=== PATIENT | female | born 1935 | race Hispanic/Latino ===

== ENCOUNTER 2019-08-26 17:19 | Emergency (ER) | payer OTHER ==
[2019-08-26] MEDS ORDERED: LORazepam 2 MG/ML VIAL ONE (17:47)
[2019-08-26 18:06] LABS: Absolute Lymphocytes (CBC) 1.4 K/uL (0.7-4.9); Basophils % 0.8 % (0-1.3); Hematocrit 40.6 % (36.0-45.0); Lymphocytes % 23.1 % (15.3-44.8); MPV 8.5 fL (7.6-11.3); RBC Red Blood Cell Count 4.57 M/uL (3.86-4.86)
[2019-08-26 18:26] LABS: ALT/SGPT 18 U/L (12-78); AST/SGOT 16 U/L (15-37); Albumin 3.6 g/dL (3.4-5.0); Alkaline Phosphatase 77 U/L (45-117); BUN Blood Urea Nitrogen 14 mg/dL (7-18); Bicarbonate 30 mmol/L (21-32); Bilirubin Direct 0.1 mg/dL (0-0.2); Bilirubin Total 0.4 mg/dL (0.2-1.0); CKMB Creatine Kinase MB 1.2 ng/mL (0.3-3.6); Creatine Phosphokinase 39 U/L (26-192); Glucose Level 120 mg/dL (74-106); Lipase 137 U/L (73-393); Potassium 3.6 mmol/L (3.5-5.1); Protein, Total 8.1 g/dL (6.4-8.2); Sodium Level 138 mmol/L (136-145); Troponin (Emerg Dept Use Only) < 0.02 ng/mL (0.0-0.045)
--- NOTE | 2019-08-26 18:28 | RAD REPORT ---
EXAM DESCRIPTION: RAD - Chest Single View - 08/26/2019 6:04 pm CLINICAL HISTORY: Altered mental status, shortness of breath COMPARISON: June 2017 TECHNIQUE: AP portable chest image was obtained 1801 hour . FINDINGS: No peripheral mass or consolidation. Heart size is normal. Upper lobe vasculature within n ormal limits. Interstitial pattern is increased over comparison. Trachea is midline. No measurable pl eural effusion and no pneumothorax. No acute bony abnormality seen. No acute aortic findings suspecte d. IMPRESSION: Interstitial edema or interstitial infiltrate superimposed on a mild chronic interstitia l pattern. No focal mass or consolidation.
[2019-08-26 18:33] LABS: Urine Bacteria <20 /HPF (<20); Urine Culture Reflex Order REFLEXED; Urine RBC <5 /HPF (NONE SEEN)
--- NOTE | 2019-08-26 19:56 | RAD REPORT ---
EXAM DESCRIPTION: CT - Head Brain Wo Cont - 08/26/2019 7:45 pm CLINICAL HISTORY: Declining state, transient alteration of awareness COMPARISON: None. TECHNIQUE: Axial 5 mm thick images of the head were obtained without IV contrast. All CT scans are performed using dose optimization technique as appropriate and may include automated exposure control or mA/KV adjustment according to patient size. FINDINGS: No intracranial hemorrhage, mass, edema or shift of mid-line structures. No acute cortical based infarction. No cortical edema or sulcal effacement. Arterial and physiologic calcifications ar e present. No cortical edema or sulcal effacement. Moderate atrophy and chronic ischemic changes are present. No abnormal extra-axial fluid collections. Ventricles are in proportion to the volume loss. Mastoid air cells and visualized portions of the paranasal sinuses are clear. No acute bony findings. Patient has normal variant hyperostosis frontalis interna. IMPRESSION: Atrophy and chronic ischemic changes are present but no acute intracranial finding seen.
[2019-08-26 20:12] LABS: Urine Blood NEGATIVE (NEG); Urine Glucose NEGATIVE (NEG); Urine Protein NEGATIVE (NEG); Urine Specific Gravity 1.015 (1.005-1.030)
--- NOTE | 2019-08-26 20:13 | EDPHYS ---
Physician Documentation [facility] Name: Leonor Solis Age: 84 yrs Sex: Female : 1935 Arrival Date: 08/26/2019 Time: 17:21 Bed 5 Private MD: ED Physician Ben Crum HPI: 08/26 17:46 This 84 yrs old Female presents to ER via Wheelchair with complaints of snw Confusion. 17:46 The patient presents with agitation, confusion. Onset: The symptoms/episode snw began/occurred gradually, 3 day(s) ago, and became persistent. Possible causes: worsening dementia, recent NSAID use in past 2-3 weeks. Associated signs and symptoms: Pertinent positives: agitation. Current symptoms: In the emergency department the patient's symptoms are unchanged from the initial presentation. 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 The patient has experienced similar episodes in the past. Dr. Lay is pt's MD. Historical: - Allergies: 17:46 PENICILLINS; iw - Home Meds: 17:51 doxepin 25 mg Oral cap 1 cap once daily [Active]; meloxicam 7.5 mg oral tab 1 tab once iw daily [Active]; donepezil 10 mg oral tab 1 tab once daily [Active]; tramadol 50 mg Oral tab twice a day [Active]; - PMHx: 17:46 Dementia; Arthritis; iw - PSHx: 17:46 right AKA; iw - Immunization history:: Adult Immunizations not up to date. - Social history:: Smoking status: Patient/guardian denies using tobacco, the patient reports quitting approximately 35 years ago. - Ebola Screening: : Patient negative for fever greater than or equal to 101.5 degrees Fahrenheit, and additional compatible Ebola Virus Disease symptoms Patient denies exposure to infectious person Patient denies travel to an Ebola-affected area in the 21 days before illness onset No symptoms or risks identified at this time. ROS: 17:42 Constitutional: Negative for fever, chills, and weight loss, Eyes: Negative for injury, snw pain, redness, and discharge, ENT: Negative for injury, pain, and discharge, Neck: Negative for injury, pain, and swelling, Cardiovascular: Negative for chest pain, palpitations, and edema, Respiratory: Negative for shortness of breath, cough, wheezing, and pleuritic chest pain, Abdomen/GI: Negative for abdominal pain, nausea, vomiting, diarrhea, and constipation, Back: Negative for injury and pain, : Negative for injury, bleeding, discharge, and swelling, MS/Extremity: Negative for injury and deformity, Skin: Negative for injury, rash, and discoloration, Neuro: Negative for headache, weakness, numbness, tingling, and seizure. 17:42 Psych: Positive for insomnia, aggressive at times. Exam: 17:42 Constitutional: This is a well developed, well nourished patient who is awake, alert, snw and in no acute distress. Head/Face: Normocephalic, atraumatic. Eyes: Pupils equal round and reactive to light, extra-ocular motions intact. Lids and lashes normal. Conjunctiva and sclera are non-icteric and not injected. Cornea within normal limits. Periorbital areas with no swelling, redness, or edema. Neck: Trachea midline, no thyromegaly or masses palpated, and no cervical lymphadenopathy. Supple, full range of motion without nuchal rigidity, or vertebral point tenderness. No Meningismus. Chest/axilla: Normal chest wall appearance and motion. Nontender with no deformity. No lesions are appreciated. Cardiovascular: Regular rate and rhythm with a normal S1 and S2. No gallops, murmurs, or rubs. Normal PMI, no JVD. No pulse deficits. Respiratory: Lungs have equal breath sounds bilaterally, clear to auscultation and percussion. No rales, rhonchi or wheezes noted. No increased work of breathing, no retractions or nasal flaring. Abdomen/GI: Soft, non-tender, with normal bowel sounds. No distension or tympany. No guarding or rebound. No evidence of tenderness throughout. Back: No spinal tenderness. No costovertebral tenderness. Full range of motion. Skin: Warm, dry with normal turgor. Normal color with no rashes, no lesions, and no evidence of cellulitis. MS/ Extremity: Pulses equal, no cyanosis. Neurovascular intact. Full, normal range of motion. Neuro: Awake and alert, GCS 15, oriented to person, place, time, and situation. Cranial nerves II-XII grossly intact. Motor strength 5/5 in all extremities. Sensory grossly intact. Cerebellar exam normal. Normal gait. 17:42 Eyes: Pupils equal round and reactive to light, extra-ocular motions intact. Lids and lashes normal. Conjunctiva and sclera are non-icteric and not injected. slight pallor, Cornea within normal limits. Periorbital areas with no swelling, redness, or edema. ENT: Nares patent. No nasal discharge, no septal abnormalities noted. Tympanic membranes are normal and external auditory canals are clear. Oropharynx with no redness, swelling, or masses, exudates, or evidence of obstruction, uvula midline. Mucous membranes moist. Vital Signs: 17:45 Temp 98.9(O); aa5 17:46 BP 107 / 85; Pulse 78; Resp 16 S; Pulse Ox 98% on R/A; Weight 74.84 kg; Pain 0/10; iw 18:30 BP 127 / 51; Pulse 79; Resp 18 S; Pulse Ox 99% on R/A; aa5 19:00 BP 130 / 51; Pulse 78; Resp 16; Temp 98.1(O); Pulse Ox 100% on R/A; Pain 0/10; ao MDM: 17:29 Patient medically screened. snw 20:14 Data reviewed: vital signs, nurses notes. Data interpreted: Pulse oximetry: on room air snw is 100 %. Interpretation: normal. Counseling: I had a detailed discussion with the patient and/or guardian regarding: the historical points, exam findings, and any diagnostic results supporting the discharge/admit diagnosis, the presence of at least one elevated blood pressure reading (>120/80) during this emergency department visit, lab results, radiology results, the need for outpatient follow up, to return to the emergency department if symptoms worsen or persist or if there are any questions or concerns that arise at home. Special discussion: Based on the history and exam findings, there is no indication for further emergent testing or inpatient evaluation. I discussed with the patient/guardian the need to see the primary care provider for further evaluation of the symptoms. 08/26 17:39 Order name: T\T\S; Complete Time: 19:03 snw 08/26 17:39 Order name: Basic Metabolic Panel; Complete Time: 18:48 snw 08/26 17:39 Order name: Blood Culture Adult (2) snw 08/26 17:39 Order name: CBC with Diff; Complete Time: 18:16 snw 08/26 17:39 Order name: Ckmb; Complete Time: 18:48 snw 08/26 17:39 Order name: CPK; Complete Time: 18:48 snw 08/26 17:39 Order name: Lactate; Complete Time: 18:23 snw 08/26 17:39 Order name: LFT's; Complete Time: 18:48 snw 08/26 17:39 Order name: Lipase; Complete Time: 18:48 snw 08/26 17:39 Order name: Procalcitonin; Complete Time: 18:48 snw 08/26 17:39 Order name: Protime (+inr); Complete Time: 18:23 snw 08/26 17:39 Order name: Ptt, Activated; Complete Time: 18:23 snw 08/26 17:39 Order name: Troponin (emerg Dept Use Only); Complete Time: 18:48 snw 08/26 17:39 Order name: Urine Microscopic Only; Complete Time: 18:48 snw 08/26 17:39 Order name: Chest Single View XRAY; Complete Time: 18:48 snw 08/26 17:39 Order name: Accucheck; Complete Time: 17:58 snw 08/26 17:39 Order name: Cardiac monitoring; Complete Time: 17:58 snw 08/26 17:39 Order name: EKG - Nurse/Tech; Complete Time: 18:29 snw 08/26 17:39 Order name: IV Saline Lock - Large Bore; Complete Time: 17:58 snw 08/26 17:39 Order name: Labs collected and sent; Complete Time: 17:58 snw 08/26 17:39 Order name: O2 Per Protocol; Complete Time: 17:58 snw 08/26 17:39 Order name: O2 Sat Monitoring; Complete Time: 17:58 snw 08/26 17:39 Order name: Urine Dipstick-Ancillary (obtain specimen); Complete Time: 18:24 snw 08/26 17:39 Order name: Cath; Complete Time: 18:24 snw 08/26 17:39 Order name: Urine Culture snw 08/26 18:00 Order name: Glucose, Ancillary Testing; Complete Time: 18:16 EDMS 08/26 18:36 Order name: Urine Dipstick--Ancillary (enter results); Complete Time: 20:15 sp 08/26 19:21 Order name: CT Head Brain wo Cont; Complete Time: 20:09 snw Administered Medications: 17:52 Drug: Ativan 0.5 mg Route: IVP; Site: right antecubital; aa5 18:29 Follow up: Response: No adverse reaction aa5 Point of Care Testing: Blood Glucose: 17:48 Blood Glucose: 121 mg/dL; aa5 Ranges: Critical Glucose Levels:Adult <50 mg/dl or >400 mg/dl <40 mg/dl or >180 mg/dl Disposition: 08/27 06:38 Co-signature as Attending Physician, Ben Crum MD I agree with the assessment and shea plan of care. Disposition: 08/26/19 20:13 Discharged to Home. Impression: Altered mental status, unspecified, Dementia in other diseases classified elsewhere with behavioral disturbance. - Condition is Stable. - Discharge Instructions: Confusion, Dementia, Insomnia. - Medication Reconciliation Form, Thank You Letter, Antibiotic Education, Prescription Opioid Use form. - Follow up: Private Physician; When: 2 - 3 days; Reason: Recheck today's complaints, Continuance of care, Re-evaluation by your physician. Follow up: Emergency Department; When: As needed; Reason: Worsening of condition. - Problem is an acute exacerbation. - Symptoms are unchanged. Signatures: Dispatcher [employer] Ben Maguire MD MD cha Therrien, Shelly, MARKETING CLERK-C MARKETING CLERK-Csnw Helen Miles RN RN iw Calderon, Audri, RN RN aa5 Remy Swan RN RN ao Corrections: (The following items were deleted from the chart) 08/26 20:40 20:13 08/26/2019 20:13 Discharged to Home. Impression: Altered mental status, ao unspecified; Dementia in other diseases classified elsewhere with behavioral disturbance. Condition is Stable. Forms are Medication Reconciliation Form, Thank You Letter, Antibiotic Education, Prescription Opioid Use. Follow up: Private Physician; When: 2 - 3 days; Reason: Recheck today's complaints, Continuance of care, Re-evaluation by your physician. Follow up: Emergency Department; When: As needed; Reason: Worsening of condition. Problem is an acute exacerbation. Symptoms are unchanged. snw
--- NOTE | 2019-08-26 20:13 | ER ---
Nurse's Notes [facility] Name: Leonor Solis Age: 84 yrs Sex: Female : 1935 Arrival Date: 08/26/2019 Time: 17:21 Bed 5 Private MD: Diagnosis: Altered mental status, unspecified;Dementia in other diseases classified elsewhere with behavioral disturbance Presentation: 08/26 17:41 Presenting complaint: Child states: pt has not been sleeping for past 3 days, has been iw taking her sleeping pills, has also been acting out at home, some aggressive behavior toward family members, doctor believes it's Alzheimer's but she does not have an official diagnosis. 17:43 Transition of care: patient was not received from another setting of care. Onset of iw symptoms was August 26, 2019. Risk Assessment: Do you want to hurt yourself or someone else? Patient reports no desire to harm self or others. Initial Sepsis Screen: Does the patient meet any 2 criteria? No. Patient's initial sepsis screen is negative. Does the patient have a suspected source of infection? No. Patient's initial sepsis screen is negative. Care prior to arrival: None. 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 - Social history:: Smoking status: Patient/guardian denies using tobacco, the patient reports quitting approximately 35 years ago. - Ebola Screening: : Patient negative for fever greater than or equal to 101.5 degrees Fahrenheit, and additional compatible Ebola Virus Disease symptoms Patient denies exposure to infectious person Patient denies travel to an Ebola-affected area in the 21 days before illness onset No symptoms or risks identified at this time. Screenin:25 Abuse screen: No signs of abuse noted. Nutritional screening: No deficits noted. aa5 Tuberculosis screening: No symptoms or risk factors identified. Fall Risk Secondary diagnosis (15 points) dementia, IV access (20 points). Mental Status- Overestimates/Forgets Limitations (15 pts.). Total Peter Fall Scale indicates High Risk Score (45 or more points). Fall prevention measures have been instituted. Side Rails Up X 2 Placed Close to Nursing Station Family Present and informed to notify staff if the need to leave the bedside. Assessment: 17:35 General: Appears comfortable, Behavior is calm, cooperative. Pain: Denies pain. Neuro: aa5 Level of Consciousness is awake, obeys commands, confused, Oriented to person, place, Automatic Splicing Machine Operator are equal bilaterally Moves all extremities. Speech is normal, Facial symmetry appears normal, Pupils are PERRLA. Cardiovascular: Heart tones S1 S2 present Rhythm is regular. Respiratory: Airway is patent Respiratory effort is even, unlabored, Respiratory pattern is regular, symmetrical. GI: Abdomen is round non-distended, Bowel sounds present X 4 quads. Abd is soft and non tender X 4 quads. : Brief noted. EENT: No signs and/or symptoms were reported regarding the EENT system. Derm: Skin is pink, warm \T\ dry. Musculoskeletal: R AKA noted. 18:30 Reassessment: Pt sitting up in bed. Equal and unlabored respirations, skin is aa5 normal/warm/dry. 19:10 General: Appears in no apparent distress. comfortable, Behavior is calm, cooperative. ao Pain: Denies pain. Neuro: Level of Consciousness is awake, obeys commands, confused, Oriented to person, place, Automatic Splicing Machine Operator are equal bilaterally Moves all extremities. Full function Speech is normal, Facial symmetry appears normal, Pupils are PERRLA. Cardiovascular: Heart tones S1 S2 present Rhythm is regular. Respiratory: Airway is patent Respiratory effort is even, unlabored, Respiratory pattern is regular, symmetrical. GI: Abdomen is round non-distended. : Reports uti. EENT: No signs and/or symptoms were reported regarding the EENT system. Derm: Skin is pink, warm \T\ dry. Skin temperature is warm. Musculoskeletal: No signs and/or symptoms reported regarding the musculoskeletal system. 20:39 Reassessment: DC home. DC Instructions given to daughter. ao Vital Signs: 17:45 Temp 98.9(O); aa5 17:46 BP 107 / 85; Pulse 78; Resp 16 S; Pulse Ox 98% on R/A; Weight 74.84 kg; Pain 0/10; iw 18:30 BP 127 / 51; Pulse 79; Resp 18 S; Pulse Ox 99% on R/A; aa5 19:00 BP 130 / 51; Pulse 78; Resp 16; Temp 98.1(O); Pulse Ox 100% on R/A; Pain 0/10; ao ED Course: 17:21 Patient arrived in ED. rg4 17:28 Aysha Rodriguez FNP-C is PSYCHIATRICP. snw 17:28 Ben Crum MD is Attending Physician. snw 17:29 Cheri Ramirez, JC is Primary Nurse. jl7 17:39 Dunia Solorzano, JC is Primary Nurse. aa5 17:45 Triage completed. iw 17:45 Patient has correct armband on for positive identification. Placed in gown. Bed in low aa5 position. Call light in reach. Side rails up X2. associate media director on. Pulse ox on. NIBP on. 17:45 First set of blood cultures drawn by me. aa5 17:47 Arm band placed on. iw 17:50 Initial lab(s) drawn, by me, sent to lab. Inserted saline lock: 20 gauge in right aa5 antecubital area, using aseptic technique. Blood collected. 18:00 Second set of blood cultures drawn by me. aa5 18:04 Chest Single View XRAY In Process Unspecified. EDMS 18:20 Straight cath inserted, using sterile technique, 16 Fr. Specimen obtained. Returned aa5 clear yellow urine. Patient tolerated well. 18:29 No provider procedures requiring assistance completed. aa5 18:38 EKG done, by ED staff, reviewed by Aysha DARBY. jb1 18:57 Report given to Remy RN and JC Nicolas. aa5 19:46 CT Head Brain wo Cont In Process Unspecified. EDMS 20:38 IV discontinued, intact, bleeding controlled, No redness/swelling at site. Pressure ao dressing applied. Administered Medications: 17:52 Drug: Ativan 0.5 mg Route: IVP; Site: right antecubital; aa5 18:29 Follow up: Response: No adverse reaction aa5 Point of Care Testing: Blood Glucose: 17:48 Blood Glucose: 121 mg/dL; aa5 Ranges: Outcome: 20:13 Discharge ordered by . snw 20:38 Discharged to home via wheelchair. ao 20:38 Condition: stable 20:38 Discharge instructions given to patient, laser beam trim operator, Instructed on discharge instructions, follow up and referral plans. Demonstrated understanding of instructions, follow-up care, medications. 20:40 Patient left the ED. ao Signatures: Dispatcher [employer] EDMS Fantasma Pate jb1 Aysha Rodriguez, AGILE BUSINESS ANALYST-C AGILE BUSINESS ANALYST-Csnw Helen Miles, RN RN Dunia Troncoso RN RN aa5 Remy Swan RN RN Hyacinth Velasco4 Cheri Ramirez RN RN jl7 Corrections: (The following items were deleted from the chart) 17:45 17:41 Presenting complaint: Child states: pt has not been sleeping for past 3 days, has iw been taking her sleeping pills iw
[2019-08-26 20:52] VITALS: BP 130/51; TEMP 98.1; O2SAT 100
--- NOTE | 2019-08-27 12:05 | EKG ---
Test Date: 2019-08-26 Test Time: 18:35:22 Abalone Diver: BRYON MEASUREMENT RESULTS: Intervals: Rate: 76 [place]: 198 QRSD: 86 QT: 390 QTc: 438 [place]: P: 57 [place]: 198 QRS: 38 T: 60 INTERPRETIVE STATEMENTS: Normal sinus rhythm Normal ECG Compared to ECG 06/02/2017 18:31:26 Myocardial infarct finding no longer present Electronically Signed On 08-27-19 12:03:38 ELECTRICAL AND INSTRUMENTATION MECHANIC by Héctor Scales
== END 2019-08-26 20:40 | disposition home or self-care (01) ==
LOC: ER 17:19
DX: R41.82 Altered mental status, unspecified (principal); F03.91 Unspecified dementia, unspecified severity, with behavioral disturbance; Z88.0 Allergy status to penicillin
CPT/HCPCS: 36415; 51702; 70450; 71045; 80048; 80076; 81003; 81015; 82550; 82553; 82947; 83605; 83690; 84145; 84484; 85025; 85610; 85730; 86850; 86900; 86901; 87040; 87077; 87086; 87088; 87186; 93005; 96374; 99284

== ENCOUNTER 2019-10-17 17:49 | Emergency (ER) | payer OTHER ==
[2019-10-17] MEDS ORDERED: MORPHINE 4 MG/ML SYR ONE (20:19)
--- NOTE | 2019-10-17 20:48 | RAD REPORT ---
EXAM DESCRIPTION: CT - CTHCSPWOC - 10/17/2019 8:19 pm CLINICAL HISTORY: Fall, head and neck injury COMPARISON: None. TECHNIQUE: Axial 5 mm thick images of the head were obtained. Axial 2 mm thick images of the cervic al spine were obtained with sagittal and coronal reconstruction images generated and reviewed. All CT scans are performed using dose optimization technique as appropriate and may include automated exposure control or mA/KV adjustment according to patient size. FINDINGS: No intracranial hemorrhage, mass, edema or acute intracranial finding. No suspicion for ac padma infarction. No extra-axial fluid collections. Mastoid air cells and paranasal sinuses are clear. No globe or orbit abnormality seen. Mild atrophy and chronic ischemic changes are present. Ventricles are in proportion to the volume loss. Cervical body height and alignment are normal. C6-7 disc space narrowing is present along the left la teral margin with a very large left lateral spur. Central canal is stenotic to 8 mm at C5-6. No fract ure or acute bony abnormality. Large spurs and bridging ossification fuses anteriorly the C2 -C6 bodi es. There is posterior bridging ossification of C5-6. Bridging ossification fuses C7 -T2. T2 is the l owest visualized level. No paraspinal mass or hematoma. IMPRESSION: Mild atrophy and chronic ischemic change with no acute intracranial finding. No acute cervical fracture. 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 L eft lateral disc space narrowing and very pronounced endplate spurring noted at C6-7. C7-T2 fusion is present from the same anterior bridging ossification. The remainder of the thoracic spine is not live ged.
--- NOTE | 2019-10-17 20:55 | ER ---
Nurse's Notes [facility] Name: Leonor Solis Age: 84 yrs Sex: Female : 1935 Arrival Date: 10/17/2019 Time: 17:51 Bed 30 Private MD: Av Lay E Diagnosis: Contusion of unspecified part of head-scalp, parietal area;Fall from chair;Fracture of coccyx Presentation: 10/17 18:07 Presenting complaint: Child states: "She went to the bathroom and she fell on the hard aj1 floor, she fell on her butt and now everytime she moves she wants to cry because her tail bone hurt" Patient reports that she also hit the back of her head, Denies LOC, vomiting. Denies taking any blood thinner medications. Care prior to arrival: None. Mechanism of Injury: Fall from standing position. Trauma event details: Injury occurred in the [facility]. 18:07 Acuity: ELICIA 3 aj1 18:07 Method Of Arrival: Wheelchair aj1 18:10 Transition of care: patient was not received from another setting of care. Onset of aj1 symptoms was 2019. Risk Assessment: Do you want to hurt yourself or someone else? Patient reports no desire to harm self or others. Initial Sepsis Screen: Does the patient meet any 2 criteria? No. Patient's initial sepsis screen is negative. Does the patient have a suspected source of infection? No. Patient's initial sepsis screen is negative. Triage Assessment: 18:11 General: Appears in no apparent distress. comfortable, Behavior is calm, cooperative, aj1 appropriate for age. Pain: Complains of pain in coccyx. Neuro: Level of Consciousness is awake, alert, obeys commands. Cardiovascular: Patient's skin is warm and dry. Respiratory: Airway is patent Respiratory effort is even, unlabored, Respiratory pattern is regular, symmetrical. Historical: - Allergies: 18:11 PENICILLINS; aj1 - Home Meds: 18:11 aspirin 81 mg Oral TbEC 1 tab once daily [Active]; Lorazepam Oral [Active]; donepezil aj1 10 mg Oral tab 1 tab once daily [Active]; doxepin 25 mg Oral cap 1 cap once daily [Active]; meloxicam 7.5 mg Oral tab 1 tab once daily [Active]; tramadol 50 mg Oral tab twice a day [Active]; - PMHx: 18:11 Arthritis; Dementia; Diabetes - NIDDM; aj1 - Immunization history: Last tetanus immunization: unknown. - Social history:: Smoking status: Patient/guardian denies using tobacco. - Ebola Screening: : Patient denies travel to an Ebola-affected area in the 21 days before illness onset. Screenin:07 Abuse screen: Denies threats or abuse. Denies injuries from another. Tuberculosis aj1 screening: No symptoms or risk factors identified. 19:41 Nutritional screening: No deficits noted. Fall Risk Fall in past 12 months (25 points). iw Primary Survey: 18:07 NO uncontrolled hemorrhage observed. A: The patient is alert. Airway: patent. aj1 Breathing/Chest: Respiratory pattern: regular, Respiratory effort: spontaneous, unlabored. Circulation: Skin color: pink. Disability Alert. Assessment: 19:40 General: Appears in no apparent distress. Behavior is calm, cooperative. Pain: iw Complains of pain in buttocks and coccyx. Neuro: Level of Consciousness is awake, alert, obeys commands, Oriented to person, place, Moves all extremities. Full function. Cardiovascular: Capillary refill < 3 seconds in bilateral fingers Patient's skin is warm and dry. Respiratory: Respiratory effort is even, unlabored, Respiratory pattern is regular. GI: Abdomen is flat, non-distended. Derm: Skin is intact, is healthy with good turgor. Musculoskeletal: Range of motion: intact in all extremities. 20:00 Pain: Complains of pain in sacrum and buttocks and coccyx Pain does not radiate. Pain jv1 currently is 8 out of 10 on a pain scale. Quality of pain is described as. Neuro: Level of Consciousness is awake, alert, obeys commands, Oriented to person, place, situation, Moves all extremities. Full function. Respiratory: Respiratory effort is even, unlabored, Respiratory pattern is regular. GI: Abdomen is flat, non-distended. : incontinent. EENT: No signs and/or symptoms were reported regarding the EENT system. Injury Description: Head injury sustained to scalp. 21:00 Reassessment: Patient appears in no apparent distress at this time. No changes from jv1 previously documented assessment. Patient and/or family updated on plan of care and expected duration. Pain level reassessed. Patient is alert, oriented x 3, equal unlabored respirations, skin warm/dry/pink. Patient denies pain at this time. Patient states feeling better. cleaned patient and changed briefs. . Vital Signs: 18:07 BP 122 / 58; Pulse 74; Resp 18; Temp 97.6; Pulse Ox 98% on R/A; Weight 49.44 kg (R); aj1 Height 5 ft. 0 in. (152.40 cm) (R); Pain 6/10; 19:57 BP 145 / 50; Pulse 68; Resp 18; Temp 99.5; Pulse Ox 98% ; Pain 4/10; jv1 21:00 BP 140 / 80; Pulse 70; Resp 18; Temp 98; Pain 4/10; jv1 21:00 BP 140 / 80; Pulse 88; Resp 18; Temp 98; Pulse Ox 99% on R/A; Pain 0/10; jv1 21:00 BP 140 / 80; Pulse 75; Resp 18; Temp 98; Pulse Ox 99% ; Pain 0/10; jv1 18:07 Body Mass Index 21.29 (49.44 kg, 152.40 cm) aj1 [place] Coma Score: 18:07 Eye Response: spontaneous(4). Verbal Response: oriented(5). Motor Response: obeys aj1 commands(6). Total: 15. 21:00 Eye Response: spontaneous(4). Verbal Response: oriented(5). Motor Response: obeys jv1 commands(6). Total: 15. Trauma Score (Adult): 18:07 Eye Response: spontaneous(1); Verbal Response: oriented(1); Motor Response: obeys aj1 commands(2); Systolic BP: > 89 mm Hg(4); Respiratory Rate: 10 to 29 per min(4); [place] Score: 15; Trauma Score: 12 21:00 Eye Response: spontaneous(1); Verbal Response: oriented(1); Motor Response: obeys jv1 commands(2); Systolic BP: > 89 mm Hg(4); Respiratory Rate: 10 to 29 per min(4); [place] Score: 15; Trauma Score: 12 ED Course: 17:51 Patient arrived in ED. mr 17:51 Av Lay MD is Private Physician. mr 18:07 Patient has correct armband on for positive identification. aj1 18:07 Patient maintains SpO2 saturation greater than 95% on room air. aj1 18:09 Triage completed. aj1 18:11 Arm band placed on Patient placed in waiting room, Patient notified of wait time. aj1 19:48 Armen Vázquez NP is PHCP. pm1 19:48 Ben Crum MD is Attending Physician. pm1 20:19 CT Head C Spine In Process Unspecified. EDMS 20:29 Sacrum And Coccyx XRAY In Process Unspecified. EDMS 21:46 No provider procedures requiring assistance completed. Patient did not have IV access jv1 during this emergency room visit. Administered Medications: 20:15 Drug: morphine 2 mg Route: IM; Site: right deltoid; jv1 21:00 Follow up: BP 140 / 80; Pulse 75 bpm; Resp 18 bpm; Temp 98; Pulse Ox 99% ; Pain 0/10 jv1 Adult 21:39 Follow up: Response: No adverse reaction; Pain is decreased jv1 Outcome: 20:54 Discharge ordered by MD. pm1 21:46 Discharged to home via wheelchair, with family. jv1 21:46 Condition: good 21:46 Discharge instructions given to patient, family, Instructed on discharge instructions, follow up and referral plans. medication usage. 21:48 Patient left the ED. jv1 Signatures: Dispatcher [employer] EDKirsten Gaona RN RN aj1 Arlene Johnson Irene, RN RN iw Marinas, Patrick, NP COMMUNITY SUPPORT WORKER pm1 Sabina Schwarz RN RN jv1
--- NOTE | 2019-10-17 20:55 | EDPHYS ---
Physician Documentation [facility] Name: Leonor Solis Age: 84 yrs Sex: Female : 1935 Arrival Date: 10/17/2019 Time: 17:51 Bed 30 Private MD: Av Lay E ED Physician Ben Crum HPI: 10/17 20:43 This 84 yrs old Female presents to ER via Wheelchair with complaints of Fall pm1 Injury. 20:43 Details of fall: The patient fell from seated position, out of a chair, while pm1 transferring, and struck a tile surface. Onset: The symptoms/episode began/occurred just prior to arrival. Associated injuries: The patient sustained coccyx, pain, parietal area, contusion. It is unknown whether or not the patient has recently seen a physician. Patient was transferring from the toilet bowl to the her wheelchair. Patient has right AKA. Patient missed her wheelchair and hit the back of her head on the floor. No LOC, nausea, vomiting. No neck pain. 20:43 Patient's with pain to her tailbone. pm1 Historical: - Allergies: 18:11 PENICILLINS; aj1 - Home Meds: 18:11 aspirin 81 mg Oral TbEC 1 tab once daily [Active]; Lorazepam Oral [Active]; donepezil aj1 10 mg Oral tab 1 tab once daily [Active]; doxepin 25 mg Oral cap 1 cap once daily [Active]; meloxicam 7.5 mg Oral tab 1 tab once daily [Active]; tramadol 50 mg Oral tab twice a day [Active]; - PMHx: 18:11 Arthritis; Dementia; Diabetes - NIDDM; aj1 - Immunization history: Last tetanus immunization: unknown. - Social history:: Smoking status: Patient/guardian denies using tobacco. - Ebola Screening: : Patient denies travel to an Ebola-affected area in the 21 days before illness onset. ROS: 20:43 Constitutional: Negative for fever, chills, and weight loss, Eyes: Negative for injury, pm1 pain, redness, and discharge, ENT: Negative for injury, pain, and discharge, Neck: Negative for injury, pain, and swelling, Cardiovascular: Negative for chest pain, palpitations, and edema, Respiratory: Negative for shortness of breath, cough, wheezing, and pleuritic chest pain, Abdomen/GI: Negative for abdominal pain, nausea, vomiting, diarrhea, and constipation. 20:43 : Negative for injury, bleeding, discharge, and swelling, MS/Extremity: Negative for pm1 injury and deformity, Skin: Negative for injury, rash, and discoloration, Neuro: Negative for headache, weakness, numbness, tingling, and seizure. 20:43 Back: Positive for of the sacrum, Pain. Exam: 20:43 Constitutional: This is a well developed, well nourished patient who is awake, alert, pm1 and in no acute distress. Head/Face: Normocephalic, atraumatic. Eyes: Pupils equal round and reactive to light, extra-ocular motions intact. Lids and lashes normal. Conjunctiva and sclera are non-icteric and not injected. Cornea within normal limits. Periorbital areas with no swelling, redness, or edema. ENT: Nares patent. No nasal discharge, no septal abnormalities noted. Tympanic membranes are normal and external auditory canals are clear. Oropharynx with no redness, swelling, or masses, exudates, or evidence of obstruction, uvula midline. Mucous membranes moist. Neck: Trachea midline, no thyromegaly or masses palpated, and no cervical lymphadenopathy. Supple, full range of motion without nuchal rigidity, or vertebral point tenderness. No Meningismus. Chest/axilla: Normal chest wall appearance and motion. Nontender with no deformity. No lesions are appreciated. Cardiovascular: Regular rate and rhythm with a normal S1 and S2. No gallops, murmurs, or rubs. Normal PMI, no JVD. No pulse deficits. Respiratory: Lungs have equal breath sounds bilaterally, clear to auscultation and percussion. No rales, rhonchi or wheezes noted. No increased work of breathing, no retractions or nasal flaring. Abdomen/GI: Soft, non-tender, with normal bowel sounds. No distension or tympany. No guarding or rebound. No evidence of tenderness throughout. Skin: Warm, dry with normal turgor. Normal color with no rashes, no lesions, and no evidence of cellulitis. MS/ Extremity: Pulses equal, no cyanosis. Neurovascular intact. Full, normal range of motion. 20:43 Back: pain, that is moderate, of the sacrum, normal spinal alignment noted, vertebral tenderness, No tenderness to cervical, thoracic, and lumbar spine. 20:43 Neuro: Orientation: is normal, Motor: moves all fours. Vital Signs: 18:07 BP 122 / 58; Pulse 74; Resp 18; Temp 97.6; Pulse Ox 98% on R/A; Weight 49.44 kg (R); aj1 Height 5 ft. 0 in. (152.40 cm) (R); Pain 6/10; 19:57 BP 145 / 50; Pulse 68; Resp 18; Temp 99.5; Pulse Ox 98% ; Pain 4/10; jv1 21:00 BP 140 / 80; Pulse 70; Resp 18; Temp 98; Pain 4/10; jv1 21:00 BP 140 / 80; Pulse 88; Resp 18; Temp 98; Pulse Ox 99% on R/A; Pain 0/10; jv1 21:00 BP 140 / 80; Pulse 75; Resp 18; Temp 98; Pulse Ox 99% ; Pain 0/10; jv1 18:07 Body Mass Index 21.29 (49.44 kg, 152.40 cm) aj1 [place] Coma Score: 18:07 Eye Response: spontaneous(4). Verbal Response: oriented(5). Motor Response: obeys aj1 commands(6). Total: 15. 21:00 Eye Response: spontaneous(4). Verbal Response: oriented(5). Motor Response: obeys jv1 commands(6). Total: 15. Trauma Score (Adult): 18:07 Eye Response: spontaneous(1); Verbal Response: oriented(1); Motor Response: obeys aj1 commands(2); Systolic BP: > 89 mm Hg(4); Respiratory Rate: 10 to 29 per min(4); [place] Score: 15; Trauma Score: 12 21:00 Eye Response: spontaneous(1); Verbal Response: oriented(1); Motor Response: obeys jv1 commands(2); Systolic BP: > 89 mm Hg(4); Respiratory Rate: 10 to 29 per min(4); [place] Score: 15; Trauma Score: 12 MDM: 19:48 Patient medically screened. pm1 20:51 Data reviewed: vital signs. Data interpreted: Pulse oximetry: on room air is 98 %. pm1 Interpretation: normal. Counseling: I had a detailed discussion with the patient and/or guardian regarding: the historical points, exam findings, and any diagnostic results supporting the discharge/admit diagnosis, radiology results, the need for outpatient follow up, to return to the emergency department if symptoms worsen or persist or if there are any questions or concerns that arise at home. 10/17 20:08 Order name: CT Head C Spine; Complete Time: 20:50 pm1 10/17 20:08 Order name: Sacrum And Coccyx XRAY; Complete Time: 21:08 pm1 Administered Medications: 20:15 Drug: morphine 2 mg Route: IM; Site: right deltoid; jv1 21:00 Follow up: BP 140 / 80; Pulse 75 bpm; Resp 18 bpm; Temp 98; Pulse Ox 99% ; Pain 0/10 jv1 Adult 21:39 Follow up: Response: No adverse reaction; Pain is decreased jv1 Disposition: 10/17/19 20:54 Discharged to Home. Impression: Contusion of unspecified part of head - scalp, parietal area, Fall from chair, Fracture of coccyx. - Condition is Stable. - Discharge Instructions: Contusion, Head Injury, Adult, Tailbone Injury. - Prescriptions for Ultracet 37.5- 325 mg Oral Tablet - take 1 tablet by ORAL route every 6 hours - for up to 5 days; do not exceed 8 tablets per day.; 20 tablet. - Medication Reconciliation Form, Thank You Letter, Antibiotic Education, Prescription Opioid Use form. - Follow up: Emergency Department; When: As needed; Reason: Worsening of condition. Follow up: Private Physician; When: 2 - 3 days; Reason: Recheck today's complaints, Continuance of care, Re-evaluation by your physician. - Problem is new. - Symptoms have improved. Addendum: 10/19/2019 09:58 Co-signature as Attending Physician, Ben Crum MD I agree with the assessment and c stone plan of care. Signatures: Dispatcher [employer] EDKirsten Gaona, JC RN aj1 Ben Crum MD MD cha Marinas, Patrick, SUPERINTENDENT PIER SUPERINTENDENT PIER pm1 Sabina Schwarz RN RN jv1 Corrections: (The following items were deleted from the chart) 10/17 20:19 18:49 Spine Lumbar Wo Con+CT.RAD.BRZ ordered. EDMS EDMS 20:19 18:49 Pelvis Wo Cont+CT.RAD.BRZ ordered. EDMS EDMS 21:08 20:54 10/17/2019 20:54 Discharged to Home. Impression: Contusion of unspecified part of pm1 head - scalp, parietal area; Fall from chair; Contusion of lower back and pelvis - coccyx. Condition is Stable. Forms are Medication Reconciliation Form, Thank You Letter, Antibiotic Education, Prescription Opioid Use. Follow up: Emergency Department; When: As needed; Reason: Worsening of condition. Follow up: Private Physician; When: 2 - 3 days; Reason: Recheck today's complaints, Continuance of care, Re-evaluation by your physician. Problem is new. Symptoms have improved. pm1 21:48 21:08 10/17/2019 20:54 Discharged to Home. Impression: Contusion of unspecified part of jv1 head - scalp, parietal area; Fall from chair; Fracture of coccyx. Condition is Stable. Discharge Instructions: Contusion, Head Injury, Adult, Tailbone Injury. Prescriptions for Ultracet 37.5-325 mg Oral Tablet - take 1 tablet by ORAL route every 6 hours - for up to 5 days; do not exceed 8 tablets per day.; 20 tablet. and Forms are Medication Reconciliation Form, Thank You Letter, Antibiotic Education, Prescription Opioid Use. Follow up: Emergency Department; When: As needed; Reason: Worsening of condition. Follow up: Private Physician; When: 2 - 3 days; Reason: Recheck today's complaints, Continuance of care, Re-evaluation by your physician. Problem is new. Symptoms have improved. pm1
--- NOTE | 2019-10-17 21:05 | RAD REPORT ---
EXAM DESCRIPTION: RAD - Sacrum And Coccyx - 10/17/2019 8:29 pm CLINICAL HISTORY: PAINfall, tail bone pain COMPARISON: No comparisons FINDINGS: Nondisplaced, nonangulated fracture is present at the sacrum coccyx junction. No pathologi c changes. Patient has prominent degenerative change involving L4-5 and L5-S1. SI joint degenerative change also present. IMPRESSION: Nondisplaced, nonangulated fracture of the sacrum coccyx junction.
[2019-10-17 23:07] VITALS: BP 140/80; TEMP 98; O2SAT 99
== END 2019-10-17 21:48 | disposition home or self-care (01) ==
LOC: ER 17:49
DX: S32.2XXA Fracture of coccyx, initial encounter for closed fracture (principal); S00.03XA Contusion of scalp, initial encounter; W05.0XXA Fall from non-moving wheelchair, initial encounter; Y93.89 Activity, other specified; Y92.9 Unspecified place or not applicable; E11.9 Type 2 diabetes mellitus without complications; F03.90 Unspecified dementia, unspecified severity, without behavioral disturbance, psychotic disturbance, mood disturbance, and anxiety; Z79.82 Long term (current) use of aspirin
CPT/HCPCS: 70450; 72125; 72220; 96372; 99284

== ENCOUNTER 2019-10-23 12:31 | Emergency (ER) | payer OTHER ==
--- NOTE | 2019-10-23 13:46 | RAD REPORT ---
EXAM DESCRIPTION: CT - [id number] - 10/23/2019 1:15 pm CLINICAL HISTORY: Fall, head and neck injury COMPARISON: CT head and cervical October 17 TECHNIQUE: Axial 5 mm thick images of the head were obtained. Axial 2 mm thick images of the cervic al spine were obtained with sagittal and coronal reconstruction images generated and reviewed. All CT scans are performed using dose optimization technique as appropriate and may include automated exposure control or mA/KV adjustment according to patient size. FINDINGS: No intracranial hemorrhage, mass, edema or acute intracranial finding. No suspicion for ac [place] infarction. No extra-axial fluid collections. Mastoid air cells and paranasal sinuses are clear. No globe or orbit abnormality seen. Cervical body height and alignment are normal. No significant disc space narrowing. Anterior bridging ossification fuses C2-C6. There is similar fusion changes spanning C7- T3. There may be further fusi on into the thoracic spine that is outside of the field of view. Spinal stenosis changes are present at C5-6 due to posterior endplate spurring. No fracture changes are present. Central canal detail is inherently limited. No paraspinal mass or hematoma. IMPRESSION: Atrophy and chronic ischemic changes are present with no acute intracranial finding. No clear change from October 17. Prominent cervical spine degenerative change as detailed. Again, no fracture or interval change from October 17.
--- NOTE | 2019-10-23 14:59 | RAD REPORT ---
EXAM DESCRIPTION: RAD - Wrist Right 3 View - 10/23/2019 1:51 pm CLINICAL HISTORY: fall, right wrist pain COMPARISON: No comparisonsNone. FINDINGS: No fracture is identified. There is no dislocation or periosteal reaction noted. Bones are osteopenic. Degenerative changes are present throughout the carpal bones, mild in degree. No foreign body or other soft tissue abnormality. IMPRESSION: No fracture is confirmed on this study. Bones are osteopenic which can highlight subtle fracture. Repeat imaging in 5-7 days recommended if t he patient remains symptomatic for fracture.
--- NOTE | 2019-10-23 15:05 | RAD REPORT ---
EXAM DESCRIPTION: RAD - Hand Right 3 View - 10/23/2019 1:51 pm CLINICAL HISTORY: fall, hand painfall, hand pain COMPARISON: No comparisons FINDINGS: Bones are osteopenic. IP joint space narrowing seen with spurring. No erosive component. M CP joint space narrowing is mild. Patient has moderately prominent degenerative change throughout the carpal bones. No fracture or dislocation identified. There is no dislocation or periosteal reaction noted. No fore ign body or significant soft tissue abnormality. Arterial calcifications are present. IMPRESSION: Osteopenic and degenerative hand changes are present without fracture identifiable. Repeat imaging in 7 days could be performed if the patient remains symptomatic for fracture.
--- NOTE | 2019-10-23 15:47 | RAD REPORT ---
EXAM DESCRIPTION: RAD - Chest Single View - 10/23/2019 3:38 pm CLINICAL HISTORY: ams Chest pain. COMPARISON: Chest Single View dated 08/26/2019; Chest Single View dated 06/02/2017 FINDINGS: Portable technique limits examination quality. Mild interstitial pulmonary edema. The heart is normal in size. No displaced fractures.
[2019-10-23 16:18] LABS: Urine Blood NEGATIVE (NEG); Urine Glucose NEGATIVE (NEG); Urine Protein NEGATIVE (NEG); Urine pH 7.5 (5.0-7.0)
[2019-10-23 16:53] LABS: Absolute Lymphocytes (CBC) 1.1 K/uL (0.7-4.9); Hematocrit 37.9 % (36.0-45.0); Lymphocytes % 24.3 % (15.3-44.8); MPV 8.2 fL (7.6-11.3); RBC Red Blood Cell Count 4.29 M/uL (3.86-4.86)
[2019-10-23 16:54] LABS: Protime INR 1.12
[2019-10-23 17:25] LABS: ALT/SGPT 42 U/L (12-78); AST/SGOT 35 U/L (15-37); Albumin 2.9 g/dL (3.4-5.0); Alkaline Phosphatase 78 U/L (45-117); BUN Blood Urea Nitrogen 11 mg/dL (7-18); Bicarbonate 31 mmol/L (21-32); Bilirubin Direct 0.6 mg/dL (0-0.2); Bilirubin Total 1.1 mg/dL (0.2-1.0); Glucose Level 66 mg/dL (74-106); Magnesium 2.5 mg/dL (1.8-2.4); NT PRO-BNP 379 pg/mL (<450); Potassium 3.3 mmol/L (3.5-5.1); Protein, Total 6.9 g/dL (6.4-8.2); Sodium Level 140 mmol/L (136-145); Troponin (Emerg Dept Use Only) < 0.02 ng/mL (0.0-0.045)
--- NOTE | 2019-10-23 19:03 | RAD REPORT ---
EXAM DESCRIPTION: MRI - Brain Wo Cont - 10/23/2019 6:51 pm CLINICAL HISTORY: SLURRED SPEECH Headache, drowsiness, CVA symptomology COMPARISON: Brain W/Wo Cont dated 10/14/2019; Head C Spine Mpr Wo Con dated 10/23/2019 TECHNIQUE: Multi-sequence, multiplanar MR imaging of the brain was performed without contrast. FINDINGS: No intracranial hemorrhage, hydrocephalus or extra-axial fluid collections.Mild generalize d brain atrophy is seen. Minimal periventricular chronic microvascular ischemic changes. No edema or shift of midline structures. No findings to suspect brain mass. DWI is negative for acute CVA. Midline structures are normally formed. Mastoid air cells and paranasal sinuses are clear. IMPRESSION: Negative for acute CVA or other acute intracranial finding.
[2019-10-23] MEDS ORDERED: POTASSIUM CL SA 10 MEQ TAB PO ONE ×2 (19:34→19:36)
--- NOTE | 2019-10-23 19:40 | ER ---
Nurse's Notes [facility] Name: Leonor Solis Age: 84 yrs Sex: Female : 1935 Arrival Date: 10/23/2019 Time: 12:34 Bed 19 Private MD: Diagnosis: Fall on same level from slipping, tripping and stumbling;Contusion of hand Presentation: 10/23 12:35 Presenting complaint: Patient states: Fall from standing just prior to arrival. pt c/o ss R hand pain. Care prior to arrival: Glucose check: 92. Mechanism of Injury: Fall from standing position. Trauma event details: Injury occurred in the [facility], Injury occurred: at home. Injury occurred: October 23, 2019. 12:35 Acuity: ELICIA 4 ss 12:35 Method Of Arrival: EMS: [facility] ss 19:15 Transition of care: patient was not received from another setting of care. Onset of symptoms was October 23, 2019. Risk Assessment: Do you want to hurt yourself or someone else? Patient reports no desire to harm self or others. 19:15 Initial Sepsis Screen: Does the patient meet any 2 criteria? No. Patient's initial sepsis screen is negative. Does the patient have a suspected source of infection? No. Patient's initial sepsis screen is negative. Triage Assessment: 12:57 General: Appears in no apparent distress. Behavior is calm, cooperative. Pain: bp Complains of pain in right hand and right leg. EENT: No deficits noted. Neuro: Level of Consciousness is awake, obeys commands, confused, Oriented to person. Cardiovascular: No deficits noted. Respiratory: No deficits noted. GI: No signs and/or symptoms were reported involving the gastrointestinal system. : No signs and/or symptoms were reported regarding the genitourinary system. Derm: No deficits noted. Musculoskeletal: No deficits noted. Historical: - Allergies: 12:57 PENICILLINS; bp - Home Meds: 12:57 tramadol 50 mg Oral tab twice a day [Active]; meloxicam 7.5 mg Oral tab 1 tab once bp daily [Active]; Lorazepam Oral [Active]; doxepin 25 mg Oral cap 1 cap once daily [Active]; donepezil 10 mg Oral tab 1 tab once daily [Active]; aspirin 81 mg Oral TbEC 1 tab once daily [Active]; - PMHx: 12:57 Diabetes - NIDDM; Arthritis; Dementia; bp - Immunization history:: Adult Immunizations unknown. - Social history:: Smoking status: Patient denies any tobacco usage or history of. - Ebola Screening: : No symptoms or risks identified at this time. Screenin:59 Abuse screen: Denies threats or abuse. Denies injuries from another. Nutritional bp screening: No deficits noted. Tuberculosis screening: No symptoms or risk factors identified. Fall Risk Fall in past 12 months (25 points). Secondary diagnosis (15 points) Alzheimer's, dementia, No IV (0 pts). Ambulatory Aid- None/Bed Rest/Nurse Assist (0 pts). Gait- Weak (10 pts.). Mental Status- Overestimates/Forgets Limitations (15 pts.). Total Peter Fall Scale indicates High Risk Score (45 or more points). Fall prevention measures have been instituted. Side Rails Up X 2 Placed Close to Nursing Station Frequent Obs/Assessments Occuring Family Present and informed to notify staff if the need to leave the bedside As available patient and family educated on Fall Prevention Program and Strategies. 15:47 VAN Screening: Arm Drift: Patient shows no arm weakness. Patient is VAN negative. bp Assessment: 12:59 General: SEE TRIAGE NOTE. bp 13:11 Reassessment: PT TO RADIOLOGY. PER FAMILY, PT RECENTLY DX WITH SEVERE DEMENTIA AND H/O bp MX RECENT FALLS. 13:29 Reassessment: PT RETURNED FROM RADIOLOGY. FAMILY AT B/S. RESULTS PENDING. bp 13:30 Reassessment: XRAY AT B/S. bp 14:27 Reassessment: PT RETURNED FROM RADIOLOGY, ALL CURRENT ORDERS COMPLETED. RESULTS PENDING bp FOR DISPO. 15:43 Reassessment: PER FAMILY, PT SPEECH SLURRED SINCE ARRIVAL AT THE HOSPITAL. PT EVALUATED bp BY PROVIDER AND STAFF, NO FOCAL NEURO DEFICITS NOTED. 16:44 Reassessment: UOP AND BLOOD SPECIMENS IN LAB, MRI PENDING. NO CHANGE IN NEURO STATUS. bp 17:45 Reassessment: PT TO MRI WITH CLINT CROOK. FAMILY ARCADIO AT THIS TIME, LYNNETTE DOW bp [phone]. 19:30 Reassessment: Patient appears in no apparent distress at this time. Patient and/or wh family updated on plan of care and expected duration. Pain level reassessed. 20:10 Reassessment: Patient appears in no apparent distress at this time. Patient and/or wh family updated on plan of care and expected duration. Pain level reassessed. BS rechecked at 75. Vital Signs: 12:57 BP 124 / 37; Pulse 61; Resp 17; Temp 98; Pulse Ox 98% ; bp 13:29 BP 161 / 45; Pulse 61; Resp 17; Pulse Ox 97% ; bp 14:27 BP 155 / 52; Pulse 64; Resp 16; Pulse Ox 100% ; bp 15:43 BP 146 / 67; Pulse 65; Resp 16; Pulse Ox 98% ; bp 16:42 BP 175 / 59; Pulse 67; Resp 16; Pulse Ox 98% ; bp 17:45 BP 158 / 53; Pulse 68; Resp 17; Pulse Ox 98% ; bp 18:39 Weight 49.44 kg; Height 4 ft. 10 in. (147.32 cm); sg 20:00 BP 149 / 69; Pulse 68; Resp 18; Pulse Ox 99% on R/A; wh 18:39 Body Mass Index 22.78 (49.44 kg, 147.32 cm) sg NIH Stroke Scale Scores: 15:47 NIHSS Score: 0 bp ED Course: 12:34 Patient arrived in ED. ss 12:36 Mikhail Cooper, JC is Primary Nurse. bp 12:36 Triage completed. ss 12:43 Gregory Garcia PA is PHCP. jmm 12:43 Oh Barton MD is Attending Physician. jmm 12:57 Arm band placed on. bp 12:59 Patient has correct armband on for positive identification. Bed in low position. Call bp light in reach. Side rails up X2. Adult w/ patient. 13:14 CT Head C Spine In Process Unspecified. EDMS 13:51 Hand Right 3 View XRAY In Process Unspecified. EDMS 13:51 Wrist Right 3 View XRAY In Process Unspecified. EDMS 14:47 Warm blanket given. Pulse ox on. NIBP on. mh5 15:38 XRAY Chest (1 view) In Process Unspecified. EDMS 16:16 Straight cath inserted, using sterile technique, 16 Fr. Returned ORANGE COLOR AND mh5 CLOUDY. Patient tolerated well. 16:30 Inserted saline lock: 22 gauge in right forearm, using aseptic technique. Blood bp collected. 17:55 PHCP role handed off by Gregory Garcia PA la1 17:55 Yahir Lomeli FNP-C is PHCP. la1 18:33 MRI - Brain Wo Cont In Process Unspecified. EDMS 19:15 No provider procedures requiring assistance completed. wh 20:13 IV discontinued, intact, bleeding controlled, No redness/swelling at site. Administered Medications: 19:37 Drug: Potassium Chloride 20 mEq Route: PO; ea 20:13 Follow up: Response: No adverse reaction Outcome: 19:40 Discharge ordered by MD. la1 20:12 Discharged to home via wheelchair, with family. wh 20:12 Condition: stable 20:12 Discharge instructions given to family, Instructed on discharge instructions, follow up and referral plans. POC Demonstrated understanding of instructions, follow-up care, POC 20:14 Patient left the ED. NIH Stroke Scale - NIH Stroke Score Date: 10/23/2019 Time: 15:47 Total Score = 0 1a. Level of Consciousness (LOC) - 0(Alert) 1b. Level of Consciousness (LOC) (Year \T\ Age) - 0(Both) 1c. LOC Commands (Open \T\ Closes Eyes/Order Entry Specialist) - 0(Both) 2. Best Gaze (Lateral Gaze Paresis) - 0(Normal) 3. Visual Field Loss - 0(No visual loss) 4. Facial Palsy - 0(Normal) 5a. Left Arm: Motor (10-second hold) - 0(No drift) 5b. Right Arm: Motor (10-second hold) - 0(No drift) 6a. Left Leg: Motor (5-second hold - always test supine) - 0(No drift) 6b. Right Leg: Motor (5-second hold - always test supine) - 9(Amputation, joint fusion) - Notes: PREVIOUS RLE AMPUTATION 7. Limb Ataxia (finger/nose \T\ heel/sheikh - test with eyes open) - 0(Absent) 8. Sensory Loss (pinprick arms/legs/face) - 0(Normal) 9. Best Language: Aphasia (description/naming/reading) - 0(No aphasia) 10. Dysarthria (speech clarity - read or repeat words) - 0(Normal) 11. Extinction and Inattention (visual/tactile/auditory/spatial/personal) - 0(No abnormality) Initials: bp Signatures: Dispatcher [employer] EDMS Sylvain Barrera RN RN Gregory Miles PA PA jmm Smirch, Shelby, RN RN ss Yahir Lomeli, FINANCIAL SERVICE REPRESENTATIVE-C FINANCIAL SERVICE REPRESENTATIVE-Scotty1 Yari Goncalves [facility] Irene Bridges RN RN Diaz Alvarenga Brian RN RN bp
--- NOTE | 2019-10-23 19:40 | EDPHYS ---
Physician Documentation [facility] Name: Leonor Solis Age: 84 yrs Sex: Female : 1935 Arrival Date: 10/23/2019 Time: 12:34 Bed 19 Private MD: ED Physician Oh Barton HPI: 10/23 13:04 This 84 yrs old Female presents to ER via EMS with complaints of Hand Pain, jmm Fall Injury. 13:04 The patient or guardian reports injury, pain. Onset: The symptoms/episode jmm began/occurred acutely, just prior to arrival. Modifying factors: The symptoms are alleviated by nothing, the symptoms are aggravated by nothing. Associated signs and symptoms: The patient has no apparent associated signs or symptoms. This is an 84 year old female with a history of dementia that presents to the ED after falling off her couch. Family states the fall was unwitnessed. patient initially complained of right hand pain and headache. Patient currently denies chest pain, shortness of breath, abdominal pain. . Historical: - Allergies: 12:57 PENICILLINS; bp - Home Meds: 12:57 tramadol 50 mg Oral tab twice a day [Active]; meloxicam 7.5 mg Oral tab 1 tab once bp daily [Active]; Lorazepam Oral [Active]; doxepin 25 mg Oral cap 1 cap once daily [Active]; donepezil 10 mg Oral tab 1 tab once daily [Active]; aspirin 81 mg Oral TbEC 1 tab once daily [Active]; - PMHx: 12:57 Diabetes - NIDDM; Arthritis; Dementia; bp - Immunization history:: Adult Immunizations unknown. - Social history:: Smoking status: Patient denies any tobacco usage or history of. - Ebola Screening: : No symptoms or risks identified at this time. ROS: 13:04 Constitutional: Negative for fever, chills, and weight loss, Cardiovascular: Negative jmm for chest pain, palpitations, and edema, Respiratory: Negative for shortness of breath, cough, wheezing, and pleuritic chest pain. 13:04 MS/extremity: Positive for injury or acute deformity. 13:04 Neuro: Positive for headache. 13:04 All other systems are negative. Exam: 13:04 Constitutional: This is a well developed, well nourished patient who is awake, alert, jmm and in no acute distress. Head/Face: atraumatic. Eyes: EOMI, no conjunctival erythema appreciated ENT: Moist Mucus Membranes Neck: Trachea midline, Supple Chest/axilla: Normal chest wall appearance and motion. Cardiovascular: Regular rate and rhythm. No edema appreciated Respiratory: Normal respirations, no respiratory distress appreciated Abdomen/GI: Non distended, soft Back: Normal ROM Skin: General appearance color normal 13:04 Musculoskeletal/extremity: ROM: intact in all extremities, ecchymosis noted to the dorsal surface of the right hand, < 2 sec dist cap refill, compartments are soft, NVI. 13:04 Skin: Appearance: Color: normal in color. 13:04 Neuro: Motor: is normal. 13:04 Psych: Behavior/mood is pleasant, cooperative. Vital Signs: 12:57 BP 124 / 37; Pulse 61; Resp 17; Temp 98; Pulse Ox 98% ; bp 13:29 BP 161 / 45; Pulse 61; Resp 17; Pulse Ox 97% ; bp 14:27 BP 155 / 52; Pulse 64; Resp 16; Pulse Ox 100% ; bp 15:43 BP 146 / 67; Pulse 65; Resp 16; Pulse Ox 98% ; bp 16:42 BP 175 / 59; Pulse 67; Resp 16; Pulse Ox 98% ; bp 17:45 BP 158 / 53; Pulse 68; Resp 17; Pulse Ox 98% ; bp 18:39 Weight 49.44 kg; Height 4 ft. 10 in. (147.32 cm); sg 20:00 BP 149 / 69; Pulse 68; Resp 18; Pulse Ox 99% on R/A; wh 18:39 Body Mass Index 22.78 (49.44 kg, 147.32 cm) sg NIH Stroke Scale Scores: 15:47 NIHSS Score: 0 bp MDM: 13:02 Patient medically screened. [facility] 17:50 Data reviewed: vital signs, nurses notes. Counseling: I had a detailed discussion with [facility] the patient and/or guardian regarding: the historical points, exam findings, and any diagnostic results supporting the discharge/admit diagnosis. Transition of care: After a detail discussion of the patient's case, care is transferred to Yahir Lomeli [facility]. 19:30 ED course: pt speech is clear and appropriate at this time, pt and family informed of la1 need for close FU with PCP and . 20:20 ED course: Pt BGL was 66 per labs, given food, orange juice, BGL going up at 75, pt la1 feeling well. 10/23 15:23 Order name: Basic Metabolic Panel; Complete Time: 17:27 [facility] 10/23 15:23 Order name: CBC with Diff; Complete Time: 17:27 [facility] 10/23 15:23 Order name: LFT's; Complete Time: 17:27 [facility] 10/23 15:23 Order name: Magnesium; Complete Time: 17:27 [facility] 10/23 15:23 Order name: NT PRO-BNP; Complete Time: 17:27 [facility] 10/23 15:23 Order name: PT-INR; Complete Time: 17:27 [facility] 10/23 13:02 Order name: CT Head C Spine; Complete Time: 13:52 [facility] 10/23 13:02 Order name: Hand Right 3 View XRAY; Complete Time: 15:16 [facility] 10/23 13:02 Order name: Wrist Right 3 View XRAY; Complete Time: 15:16 [facility] 10/23 15:23 Order name: Troponin (emerg Dept Use Only); Complete Time: 17:27 [facility] 10/23 15:23 Order name: XRAY Chest (1 view); Complete Time: 15:51 [facility] 10/23 15:30 Order name: MRI - Brain Wo Cont; Complete Time: 19:17 [facility] 10/23 16:13 Order name: Urine Dipstick--Ancillary (enter results); Complete Time: 16:29 em1 10/23 15:23 Order name: EKG; Complete Time: 15:23 [facility] 10/23 15:23 Order name: Cardiac monitoring; Complete Time: 16:14 [facility] 10/23 15:23 Order name: EKG - Nurse/Tech; Complete Time: 16:14 [facility] 10/23 15:23 Order name: IV Saline Lock; Complete Time: 16:41 [facility] 10/23 15:23 Order name: Labs collected and sent; Complete Time: 16:41 [facility] 10/23 15:23 Order name: O2 Per Protocol; Complete Time: 15:49 [facility] 10/23 15:23 Order name: O2 Sat Monitoring; Complete Time: 15:49 jm Administered Medications: 19:37 Drug: Potassium Chloride 20 mEq Route: PO; ea 20:13 Follow up: Response: No adverse reaction wh Disposition: 10/23/19 19:40 Discharged to Home. Impression: Fall on same level from slipping, tripping and stumbling, Contusion of hand. - Condition is Stable. - Discharge Instructions: Fall Prevention in the Home, Fall Prevention in the Home, [id number], Hand Pain. - Medication Reconciliation Form, Thank You Letter form. - Follow up: Private Physician; When: 2 - 3 days; Reason: Recheck today's complaints, Re-evaluation by your physician. - Problem is new. - Symptoms have improved. NIH Stroke Scale - NIH Stroke Score Date: 10/23/2019 Time: 15:47 Total Score = 0 1a. Level of Consciousness (LOC) - 0(Alert) 1b. Level of Consciousness (LOC) (Year \T\ Age) - 0(Both) 1c. LOC Commands (Open \T\ Closes Eyes/Financial Services Professional) - 0(Both) 2. Best Gaze (Lateral Gaze Paresis) - 0(Normal) 3. Visual Field Loss - 0(No visual loss) 4. Facial Palsy - 0(Normal) 5a. Left Arm: Motor (10-second hold) - 0(No drift) 5b. Right Arm: Motor (10-second hold) - 0(No drift) 6a. Left Leg: Motor (5-second hold - always test supine) - 0(No drift) 6b. Right Leg: Motor (5-second hold - always test supine) - 9(Amputation, joint fusion) - Notes: PREVIOUS RLE AMPUTATION 7. Limb Ataxia (finger/nose \T\ heel/sheikh - test with eyes open) - 0(Absent) 8. Sensory Loss (pinprick arms/legs/face) - 0(Normal) 9. Best Language: Aphasia (description/naming/reading) - 0(No aphasia) 10. Dysarthria (speech clarity - read or repeat words) - 0(Normal) 11. Extinction and Inattention (visual/tactile/auditory/spatial/personal) - 0(No abnormality) Initials: bp Addendum: 10/25/2019 19:46 Co-signature as Attending Physician, Oh Barton MD. rn Signatures: Dispatcher [employer] EDGregory Davila PA PA jmm Nieto, Roman, MD MD rn Yahir Lomeli, AEROSPACE PHYSIOLOGICAL TECHNICIAN-C AEROSPACE PHYSIOLOGICAL TECHNICIAN-Cla1 Irene Bridges, RN RN Diaz Alvarenga Brian, RN RN bp Corrections: (The following items were deleted from the chart) 10/23 20:14 19:40 10/23/2019 19:40 Discharged to Home. Impression: Fall on same level from wh slipping, tripping and stumbling; Contusion of hand. Condition is Stable. Forms are Medication Reconciliation Form, Thank You Letter, Antibiotic Education, Prescription Opioid Use. Follow up: Private Physician; When: 2 - 3 days; Reason: Recheck today's complaints, Re-evaluation by your physician. Problem is new. Symptoms have improved. la1
[2019-10-23 20:23] VITALS: TEMP 98
[2019-10-23 20:30] VITALS: BP 149/69; O2SAT 99
--- NOTE | 2019-10-24 08:37 | EKG ---
Test Date: 2019-10-23 Test Time: 13:01:54 Inspector Automatic Typewriter: KARI MEASUREMENT RESULTS: Intervals: Rate: 61 MI: 204 QRSD: 88 QT: 442 QTc: 444 [place]: P: 57 MI: 204 QRS: 21 T: 39 INTERPRETIVE STATEMENTS: Normal sinus rhythm Normal ECG Compared to ECG 08/26/2019 18:35:22 No significant changes Electronically Signed On 10-24-19 08:35:40 DOUGH MACHINE OPERATOR by Angel Amaral
== END 2019-10-23 20:14 | disposition home or self-care (01) ==
LOC: ER 12:31
DX: S60.221A Contusion of right hand, initial encounter (principal); W08.XXXA Fall from other furniture, initial encounter; Y93.9 Activity, unspecified; Y92.9 Unspecified place or not applicable; E11.9 Type 2 diabetes mellitus without complications; F03.90 Unspecified dementia, unspecified severity, without behavioral disturbance, psychotic disturbance, mood disturbance, and anxiety; Z79.82 Long term (current) use of aspirin; Z88.0 Allergy status to penicillin
CPT/HCPCS: 36415; 51702; 70450; 70551; 71045; 72125; 80048; 80076; 81003; 82947; 83735; 83880; 84484; 85025; 85610; 93005; 99284